=== PATIENT | female | born 1980 | race Two or more races ===

== ENCOUNTER → 2018-03-20 | Outpatient (CLI) | payer MEDICAID | END | disposition home or self-care (01) | LOC: Rad HDHVI 13:17 | PROVIDERS: ATTEND Internal Medicine | DX: I10 Essential (primary) hypertension (principal); I42.9 Cardiomyopathy, unspecified; E78.5 Hyperlipidemia, unspecified | CPT/HCPCS: 93306 ==

== ENCOUNTER → 2018-04-02 | Outpatient (CLI) | payer MEDICAID ==
[~2018-04-02] VITALS: Ht 152.4 cm; Wt 108.9 kg
[~2018-04-02] MED LIST: ADENOSINE 90 MG/30 ML INJ IV ONE
== END | disposition home or self-care (01) ==
LOC: Rad HDHVI 09:12
PROVIDERS: ATTEND Internal Medicine Cardiovascular Disease
DX: I25.10 Atherosclerotic heart disease of native coronary artery without angina pectoris (principal); I10 Essential (primary) hypertension; E78.5 Hyperlipidemia, unspecified; K82.9 Disease of gallbladder, unspecified; I42.9 Cardiomyopathy, unspecified; Z98.61 Coronary angioplasty status; F41.9 Anxiety disorder, unspecified
CPT/HCPCS: 78452; 93005; 96374; 96375; A9500; J0153